=== PATIENT | female | born 1990 | race Caucasian/White ===

== ENCOUNTER 2018-12-16 10:11 | Emergency (ER) | payer BC, SELFPAY ==
[2018-12-16 10:12] VITALS: BP 101/77; PULSE 113; RESP 20; TEMP 36.6; O2SAT 97; BMI 34.0
[2018-12-16] MEDS: Lactated Ringers 1,000 ML 999 ML IV (11:02)
[2018-12-16] MEDS: proMETHazine 25 MG/ML Syringe 6.25 MG IV (11:10)
[2018-12-16 11:15] LABS: Absolute Lymphocyte Count 0.65 X10^3/ul (0.83-4.51); Absolute Neutrophil Count 5.2 X10^3/uL (2.0-7.7); Basophil# 0.01 X10^3/uL; Basophil% 0.2 % (0-1); Hematocrit 36.7 % (37-47); Hemoglobin 12.4 g/dl (12.0-15.0); Lymphocyte # 0.65 X10^3/ul (4.0); Lymphocyte % 10.7 % (19-41); Mean Corp Hgb Conc 33.8 g/gl (32-36); Mean Corpuscular Hgb 28.9 pg (27.0-32.0); Mean Corpuscular Volume 85.5 fL (81-99); Mean Platelet Vol. 11.1 fl (6.2-12.0); Monocyte# 0.25 X10^3/uL; Monocyte% 4.1 % (0-10); Neutrophil # 5.16 X10^3/uL (2.7-7.7); Neutrophil % 84.7 % (47-70); Platelet Count 222 K/mm3 (150-450); RBC Distribution Width CV 12.9 % (11.6-14.6); RBC Distribution Width SD 39.8 fl (35.1-43.9); Red Blood Count 4.29 M/mm3 (4.2-5.4); White Blood Count 6.1 K/mm3 (4.4-11.0)
[2018-12-16 11:16] LABS: POSITIVE COUNT NO; POSITIVE DIFFERENTIAL NO; POSITIVE MORPHOLOGY NO
[2018-12-16 11:31] LABS: ALB/GLOB Ratio 0.9 RATIO (0.9-2.4); AST(SGOT) 17 U/L (15-37); Alanine Aminotransfer ALT/SGPT 25 U/L (13-56); Albumin, Serum 3.3 g/dL (3.2-5.0); Alkaline Phosphatase 56 U/L (45-117); Anion Gap 9 (5-15); BUN 6 mg/dL (7-18); BUN/Creat Ratio 10.4 RATIO (10-20); Calcium,Total 8.4 mg/dL (8.5-10.1); Chloride 104 mmol/L (98-107); Creatinine, Serum 0.58 mg/dL (0.55-1.02); EST Glomerular Filtration Rate 132 mL/min (>60); Est Glom Filt Rate - Afr Amer 160 mL/min (>60); Estimated Creatinine Clearance 152.26 ml/min; Globulin 3.8 g/dL (2.2-4.2); Glucose 86 mg/dL (74-106); Potassium 3.4 mmol/L (3.5-5.1); Protein, Total 7.1 g/dL (6.4-8.2); Sodium Level 134 mmol/L (136-145)
[2018-12-16 13:05] LABS: Mucous, Urine 0 SEEN /hpf (<or=2+); Red Blood Cells-Urine 0 SEEN /hpf (0-5)
[2018-12-16 13:07] LABS: Color, Urine Yellow (Yellow); Glucose, Dipstick Normal (Normal); Leukocyte Esterase-Dipstick Negative /ul (Negative); Nitrite-Dipstick Negative (Negative); Occult Blood-Urine Negative /ul (Negative); Protein-Dipstick Negative (Negative); Urine Bilirubin Dipstick Negative (Negative); Urine Clarity Clear (Clear); Urine Urobilinogen Normal (Normal)
[2018-12-16 13:13] LABS: Ketone-Dipstick 150 mg/dl (Negative)
[2018-12-16 13:20] LABS: Bacteria 1+ /hpf (None Seen); Squamous Epithelial Cells - UA 0-5 SEEN /hpf (5-10); White Blood Cells 0-5 SEEN /hpf (0-5)
[2018-12-16 13:44] VITALS: RESP 16
--- NOTE | 2018-12-16 13:47 | ED.VISSUMM ---
- ER Visit Summary Date of Service: 12/16/18 Chief Complaint: Nausea vomiting History of Present Illness: The patient is a 28 F with nausea and vomiting that started yesterday at 6 AM. Patient also reports some mild back pain and chills. She is 15 weeks . This is her first and she follows with the [facility]. She has had normal ultrasounds. She denies bleeding or discharge. Physical Examination: Afebrile and vital signs unremarkable except for heart rate of 113 and respiratory rate of 20. Head and neck atraumatic. Mucous membranes moist. Heart regular. Lungs clear. Abdomen soft and nontender. Extremities nontender with no edema. Skin normal in color. Test Results: CBC normal. Sodium 134 and potassium 3.4. Urinalysis showed 1+ bacteria but no other signs of infection. Culture was sent. heart tones were 148. Emergency Department Course and Treatment: Patient treated with Phenergan and lactated Ringer's. Her workup was all fairly unremarkable. She had 1+ bacteria but no signs of infection. I sent a culture. I talked her about this and she will follow-up with her FLESHING MACHINE OPERATOR for the results. On reevaluation, her nausea has resolved. She has medication at home and will continue that medication. She will follow-up with her FLESHING MACHINE OPERATOR. Treatment Plan: As above Disposition: Discharge Impression: 1. Nausea and vomiting 2. This note was generated with Humation software. It may contain incorrect words, spelling, and punctuation that were not noted in review of the chart prior to signing ED Disposition - Plan for ED Patient: Referrals: Care Physician,No Primary [Primary Care Provider] -
--- NOTE | 2018-12-16 13:50 | ED.DCSUM_ITS ---
- ER Visit Summary Date of Service: 12/16/18 Chief Complaint: Nausea vomiting History of Present Illness: The patient is a 28 F with nausea and vomiting that started yesterday at 6 AM. Patient also reports some mild back pain and chills. She is 15 weeks . This is her first and she follows with the [facility]. She has had normal ultrasounds. She denies bleeding or discharge. Physical Examination: Afebrile and vital signs unremarkable except for heart rate of 113 and respiratory rate of 20. Head and neck atraumatic. Mucous membranes moist. Heart regular. Lungs clear. Abdomen soft and nontender. Extremities nontender with no edema. Skin normal in color. Test Results: CBC normal. Sodium 134 and potassium 3.4. Urinalysis showed 1+ bacteria but no other signs of infection. Culture was sent. heart tones were 148. Emergency Department Course and Treatment: Patient treated with Phenergan and lactated Ringer's. Her workup was all fairly unremarkable. She had 1+ bacteria but no signs of infection. I sent a culture. I talked her about this and she will follow-up with her COLORECTAL SURGEON for the results. On reevaluation, her nausea has resolved. She has medication at home and will continue that medication. She will follow-up with her COLORECTAL SURGEON. Treatment Plan: As above Disposition: Discharge Impression: 1. Nausea and vomiting 2. This note was generated with BIOeCONation software. It may contain incorrect words, spelling, and punctuation that were not noted in review of the chart p rior to signing ED Disposition - Plan for ED Patient: Referrals: Care Physician,No Primary [Primary Care Provider] -
--- NOTE | 2018-12-16 13:50 | ED.DEP ---
ED Disposition - Plan for ED Patient: Instructions: ED Nausea Vomiting Additional Instructions: follow up with your obgyn
[2018-12-16 13:55] VITALS: BP 120/74; PULSE 71; RESP 15; O2SAT 98
== END 2018-12-16 13:55 | disposition home or self-care (01) ==
LOC: ED 10:51
PROVIDERS: Emergency Provider Emergency Medicine
DX: O21.9 Vomiting of pregnancy, unspecified (principal); M54.9 Dorsalgia, unspecified; Z3A.15 15 weeks gestation of pregnancy
CPT/HCPCS: 80053; 81001; 85025; 87086; 87088; 96361; 96374; 99283; J7120; A4216

== ENCOUNTER 2019-06-16 09:36 | Inpatient (IN) | payer BC, SELFPAY ==
--- NOTE | 2019-06-14 13:53 | HP.PCM_ITS ---
History and Physical Date of Admission: 06/14/19 Pre-Op History and Physical ? HPI: The patient is a 29 year old female presenting for pre-operative visit. She is scheduled for?, for?elective c/s, LGA, unengaged head at term on?06/16/19. ??Procedure discussed along with risks, benefits and complications. ?Other alternatives discussed for management. Consent form signed??Yes.? PAST?MEDICAL?HISTORY PAST MEDICAL HISTORY Diagnosis Date ? Depression ? ? ? PAST?SURGICAL?HISTORY PAST SURGICAL HISTORY Procedure Laterality Date ? CYST EXCISION ? ? ? EXTRACTION ERUPTED TOOTH/EXR ? ? ? KNEE SURGERY HX Right ? ? ACL ? NOSE ? ? ? TONSILLECTOMY AND ADENOIDECTOMY HX ? ? ? TONSILLECTOMY HX ? CURRENT?MEDICATIONS Current Outpatient Medications Medication Sig Dispense Refill ? no122/iron/folic acid ( MULTI ORAL) Take by mouth. ? ? ? psyllium (NATURAL FIBER SUPPLEMENT) 3.4 gram packet Take 1 Packet by mouth once daily. ? ? ? lactobacillus combination no.4 (PROBIOTIC) 3 billion cell cap Take 1 capsule by mouth once daily. ? ? ? No current facility-administered medications for this visit.? ? ALLERGIES:?Patient has no known allergies. ? PERSONAL HISTORY:? SOCIAL?HISTORY Social History ??Socioeconomic History ?Marital status: Single ?Spouse name: Not on file ?Number of children: Not on file ?Years of education: Not on file ?Highest education level: Not on file ??Occupational History ?Not on file ??Social Needs ?Financial resource strain: Not on file ?Food insecurity: ?Worry: Not on file ?Inability: Not on file ?Transportation needs: ?Medical: Not on file ?Non-medical: Not on file ??Tobacco Use ?Smoking status: Never Smoker ?Smokeless tobacco: Never Used ??Substance and Sexual Activity ?Alcohol use: Yes ?Drug use: Not on file ?Sexual activity: Not on file ??Lifestyle ?Physical activity: ?Days per week: Not on file ?Minutes per session: Not on file ?Stress: Not on file ??Relationships ?Social connections: ?Talks on phone: Not on file ?Gets together: Not on file ?Attends yazidi service: Not on file ?Active member of club or organization: Not on file ?Attends meetings of clubs or organizations: Not on file ?Relationship status: Not on file ?Intimate partner violence: ?Fear of current or ex partner: Not on file ?Emotionally abused: Not on file ?Physically abused: Not on file ?Forced sexual activity: Not on file ??Other Topics ?Concerns: ?Not on file ??Social History Narrative ?Not on file ? FAMILY HISTORY:? FAMILY?HISTORY FAMILY HISTORY Problem Relation Age of Onset ? Hyperlipidemia Father ? ? Hypertension Father ? ? REVIEW OF SYMPTOMS: GENERAL: denies fevers or chills ENDOCRINOLOGY: has not been on steroids Cardiology : denies palpitations or chest pain Respiratory: denies SOB or cough Hematology: denies history of prolonged bleeding or easy bruising or VTE Allergy: Denies history of personal or family history of allergy to anesthesia ? ? PHYSICAL EXAMINATION: ? VITALS:?Blood pressure 118/82, weight 248 lb (112.5 kg), last menstrual period 08/27/2018. ? GENERAL:??The patient is well nourished, well hydrated in no acute distress. ?, The patient is oriented to time, place, and person. NECK:?Supple. No lynphadenopathy, normal thyroid, no thyromegaly. LUNGS:?Clear to auscultation bilaterally. no wheezes, rhonchi or rales HEART:?Regular rate and rhythm, Normal heart sounds and No murmurs or gallops ABD: soft, nontender, gravid ext- 1 + edema ? IMPRESSION:?40 6/7 weeks on 06/16/19,?estimated weight large for gestational age both clinically and by ultrasound, unfavorable cervix with high head at term, desires primary section ? PLAN:???The risks/benefits/alternatives and personal involved for the planned?c- section?were reviewed with the patient. Her questions were answered to her satisfaction and she desires to proceed. ?Consent was signed. ?I reviewed with her postop instructions and expectations. ? ? I have reviewed and updated past medical and surgical history, medications and allergies? Amy White M.D.
[2019-06-16] VITALS (22 sets, daily range): BP systolic 107–130; BP diastolic 54–77; PULSE 66–90; RESP 16–18; TEMP 36.5–37.1; O2SAT 97–100; BMI 36.4
[2019-06-16] MEDS: Lactated Ringers 1,000 ML 999 ML IV (10:20)
[2019-06-16 10:33] LABS: Absolute Lymphocyte Count 1.59 X10^3/uL (0.83-4.51); Absolute Neutrophil Count 9.4 X10^3/uL (2.0-7.7); Basophil# 0.02 X10^3/uL; Basophil% 0.2 % (0-1); Eosinophil# 0.16 X10^3/uL; Eosinophils% 1.3 % (0-5); Lymphocyte # 1.59 X10^3/ul (4.0); Lymphocyte % 13.1 % (19-41); Mean Corp Hgb Conc 32.3 g/dL (32-36); Mean Corpuscular Hgb 26.5 pg (27.0-32.0); Monocyte# 0.88 X10^3/uL; Monocyte% 7.2 % (0-10); NRBC Flagged by Analyzer 0 % (0-5); Neutrophil # 9.38 X10^3/uL (2.7-7.7); Neutrophil % 77.2 % (47-70); Platelet Count 189 K/mm3 (150-450); RBC Distribution Width CV 14.1 % (11.6-14.6); RBC Distribution Width SD 41.3 fl (35.1-43.9); Red Blood Count 3.78 M/mm3 (4.2-5.4); White Blood Count 12.2 K/mm3 (4.4-11.0)
[2019-06-16] MEDS: Lactated Ringers 1,000 ML 150 ML IV (11:15)
[2019-06-16] MEDS: Sodium Citrate/Citric Acid 30 ML UDC PO (12:23)
[2019-06-16] MEDS: Cefazolin 2 GM in 0.9% Normal Saline 100 ML IV (12:29)
[2019-06-16] MEDS: Ondansetron 4 MG/2 ML Vial IV (12:30)
--- NOTE | 2019-06-16 13:13 | PCM.OPRPT ---
Delivery Classification: Scheduled Final JENNIFER: 06/10/19 Final JENNIFER Source: US <20 weeks Gestational age: 40 Weeks and 6 Days Indications for : - - Affected LGA fetus, unengaged head at term, unfavorable cervix, higher section Description of Procedure: The patient was taken to the operating room. She was prepped and draped in the dorsal supine position with a leftward tilt. A Pfannenstiel skin incision was made approximately 2 cm above the symphysis pubis and carried through to underlying layer fascia with the scalpel. The fascia was incised incised in the midline and extended laterally with the Gomez scissors. The fascia was dissected off the rectus muscles with blunt and sharp dissection. The rectus muscles were in the midline and the peritoneum was entered bluntly. The peritoneal incision was stretched and the bladder blade was placed. The uterine incision was made in a low transverse fashion with the scalpel and extended superiorly and inferiorly with blunt dissection. The amniotic membranes were ruptured bluntly and clear amniotic fluid returned. The 's head was brought to the incision in the flexed position and delivered without difficulty. The remainder of the infant was delivered with gentle traction and fundal pressure in the standard fashion. The mouth and nares were bulb suctioned. The cord was clamped and cut as the infant was stimulated. Cord clamping was delayed. The infant was handed off to the waiting nursing staff. The placenta was delivered with fundal massage and gentle traction in the standard fashion. The uterus was exteriorized and cleared of all clots and debris. The cervix was dilated with a ring forcep. The uterine incision was closed with #1 Vicryl in a running locked fashion. A second layer of the same suture was used in an imbricating fashion. The incision was examined and was found to be hemostatic. The uterus was placed back into the peritoneal cavity and hemostasis was again confirmed. The rectus muscles were examined and any bleeding was Bovie cauterized. The parietal peritoneum and rectus muscles were closed en bloc with an 0 Vicryl running suture. The surgical teams outer gloves were then changed. The rectus fascia was examined and any bleeding was Bovie cauterized and the rectus fascia was closed with 0 PDS suture in a running standard fashion. The subcutaneous tissue was examining and any bleeding was Bovie cauterized. The subcutaneous tissue was reapproximated with 3-0 Vicryl suture. The skin was closed in a subcuticular fashion by the MANAGER ACADEMIC with me present in the labor and delivery suite. I performed the remainder of the procedure with assistance. All sponge, lap, and needle counts were correct. The patient was taken to her room for recovery in a stable condition. Certified Physician Assistant: Louisa FREEMAN Anesthesia-Spinal Amniotic Membrane Rupture Type: Artificial Amniotic Fluid Description: Clear Placenta Disposition: [facility] Specimen(s) sent to pathology: None Drain: Armando to straight drain Fluids Replaced: LR Cord Entanglement: None Cord Vessel Description: 3 Vessels Esitmated Blood Loss (ml): 900 Infant Gender: Male - Dewey (1 minute): 9 (5 minute): 9 Delayed cord clamping: Yes Pre-op Antibiotic Given: Ancef 2 grams IV x1 Complications: None - Admit VTE Documentation VTE Present on Admission: No VTE Mechan Device Prophylaxis: SCD's VTE Pharm Prophylaxis ordered?: Yes
[2019-06-16] MEDS: Oxytocin 30 units/NS 500 ml 30 UNITS/500 ML IV.SOLN 167 UNITS IV (13:53)
[2019-06-16] MEDS: Lactated Ringers 1,000 ML 100 ML IV (16:59)
[2019-06-16] MEDS: 0.9% Saline Lock 10 ML Syringe 5 ML IV (19:19)
[2019-06-16] MEDS: Ketorolac 30 MG/ML Syringe IV (19:19)
[2019-06-16] MEDS: Senna/Docusate Sodium 1 Tablet PO (23:23)
[2019-06-17] VITALS (9 sets, daily range): BP systolic 110–129; BP diastolic 63–81; PULSE 77–88; RESP 16–18; TEMP 36.5–36.9; O2SAT 96–100
[2019-06-17] MEDS: Ketorolac 30 MG/ML Syringe IV ×4 (00:49→17:54)
[2019-06-17] MEDS: Lactated Ringers 1,000 ML 100 ML IV (02:57)
[2019-06-17 04:41] LABS: Hematocrit 28.5 % (37-47); Hemoglobin 9.4 g/dL (12.0-15.0); Mean Corpuscular Hgb 27.2 pg (27.0-32.0); Mean Corpuscular Volume 82.6 fL (81-99); Mean Platelet Vol. 12.8 fl (6.2-12.0); Platelet Count 179 K/mm3 (150-450); RBC Distribution Width SD 41.8 fl (35.1-43.9); Red Blood Count 3.45 M/mm3 (4.2-5.4); White Blood Count 15.7 K/mm3 (4.4-11.0)
[2019-06-17 04:43] LABS: Scan Indicated on CBC? Y/N NO
[2019-06-17] MEDS: Enoxaparin 40 MG/0.4 ML Syringe SC (06:07)
[2019-06-17] MEDS: 0.9% Saline Lock 10 ML Syringe 5 ML IV ×3 (06:25→17:54)
--- NOTE | 2019-06-17 08:31 | PCM.PN.OB ---
Subjective: Pain well controlled, average lochia. No nausea vomiting overnight. Tolerating regular diet. - Physical Exam General: Alert, Cooperative, No apparent distress Abdomen: Soft, Distended - Mildly, softly, Tender - Appropriately Extremities: Edema - 2+ Vital Signs Temp Pulse Resp BP Pulse Ox 97.9 F 87 18 110/63 96 06/17/19 04:00 06/17/19 06:20 06/17/19 06:20 06/17/19 04:00 06/17/19 06:20 Oxygen Delivery Method Room Air Weight: 111.9 kg Body Mass Index (BMI) 36.4 Intake and Output for Last 24 Hours 06/15/19 06/16/19 06/17/19 23:59 23:59 23:59 Intake Total 3538.25 / 4038.25 1178.34 / 1178.34 Output Total 600 / 1350 750 / 750 Balance 2938.25 / 2688.25 428.34 / 428.34 Laboratory Tests Past 24 Hrs 06/16/19 06/16/19 06/16/19 10:15 10:15 15:34 WBC 12.2 H RBC 3.78 L Hgb 10.0 L Hct 31.0 L MCV 82.0 MCH 26.5 L MCHC 32.3 RDW Std Deviation 41.3 RDW Coeff of Ray 14.1 Plt Count 189 MPV 13.0 H Immature Gran % (Auto) 1.000 H Neut % (Auto) 77.2 H Lymph % (Auto) 13.1 L Newberry % (Auto) 7.2 Eos % (Auto) 1.3 Baso % (Auto) 0.2 Absolute Neuts (auto) 9.4 H Absolute Lymphs (auto) 1.59 Nucleated RBC % 0 Blood Type O NEGATIVE Antibody Screen NEGATIVE Screen NEGATIVE Baby's Blood Type O POSITIVE Baby's CONNIE NEGATIVE 06/17/19 04:25 WBC 15.7 H RBC 3.45 L Hgb 9.4 L Hct 28.5 L MCV 82.6 MCH 27.2 MCHC 33.0 RDW Std Deviation 41.8 RDW Coeff of Ray 14.0 Plt Count 179 MPV 12.8 H Immature Gran % (Auto) Neut % (Auto) Lymph % (Auto) Newberry % (Auto) Eos % (Auto) Baso % (Auto) Absolute Neuts (auto) Absolute Lymphs (auto) Nucleated RBC % Blood Type Antibody Screen Screen Baby's Blood Type Baby's CONNIE Medical Necessity - Tobacco Use Smoking Status: Never smoker Assessment/Plan day #1 status post primary section. Patient and are doing well. Routine care. Patient had chronic antepartum anemia. Minimal decrease in hemoglobin overnight, appropriate for blood loss during surgery. Routine care.
[2019-06-17] MEDS: Senna/Docusate Sodium 1 Tablet PO ×2 (10:07→21:26)
[2019-06-17] MEDS: oxyCODONE 5 MG Tablet PO ×2 (13:30→19:07)
[2019-06-18] MEDS: Ketorolac 30 MG/ML Syringe IV (00:26)
[2019-06-18] MEDS: 0.9% Saline Lock 10 ML Syringe 5 ML IV (00:26)
[2019-06-18 02:30] VITALS: BP 119/76; PULSE 84; RESP 18; TEMP 36.3; O2SAT 96
[2019-06-18] MEDS: Ibuprofen 600 MG Tablet PO (06:44)
[2019-06-18] MEDS: Enoxaparin 40 MG/0.4 ML Syringe SC (06:44)
[2019-06-18 08:40] VITALS: BP 123/72; PULSE 82; RESP 16; TEMP 36.7
--- NOTE | 2019-06-18 09:01 | PCM.PN.OB ---
Subjective: Pain well controlled, average lochia. Positive flatus but no bowel movement. Tolerating regular diet. Ambulating without lightheadedness. - Physical Exam General: Alert, Cooperative, No apparent distress Abdomen: Soft, Distended - Mildly, softly, Tender - Appropriately Extremities: Edema - 1+ Skin: Incision - Bandage is clean dry and intact Vital Signs Temp Pulse Resp BP Pulse Ox 97.3 F L 84 18 119/76 96 06/18/19 02:30 06/18/19 02:30 06/18/19 02:30 06/18/19 02:30 06/18/19 02:30 Oxygen Delivery Method Room Air Weight: 111.9 kg Body Mass Index (BMI) 36.4 Intake and Output for Last 24 Hours 06/16/19 06/17/19 06/18/19 23:59 23:59 23:59 Intake Total 3538.25 / 4038.25 1178.34 / 1178.34 Output Total 600 / 1350 2049 / 2049 Balance 2938.25 / 2688.25 -871.66 / -871.66 Medical Necessity - Tobacco Use Smoking Status: Never smoker Assessment/Plan Postoperative day #2 status post primary section. Patient is doing well. Discharge home with routine instructions and follow-up.
--- NOTE | 2019-06-18 09:04 | DCINST_ITS ---
Discharge Diet: No Restrictions Discharge Activity: Return to Normal Activity, May Not Drive - for 2 weeks, May not drive while taking narcotic pain medications., May Shower, May Take a Tub Bath - in 7 days. May resume sexual activity in: 4-6 weeks Lifting Restrictions: 20 pounds Additional Activity Instructions:: Nothing in the vagina for 4-6 weeks. You may return to work/school in 6 weeks. Call your doctor if your incision/area has: Continuous Slow Oozing, Sudden Increased Bleeding, Increased Pain/ Swelling, Increased Redness, Foul Smelling Discharge Call your doctor if you observe: Fever of 101 or Higher, Using more than one pad per hour - for 2 hours Suture Line Care: Avoid Pulling/Pushing, Avoid Pinching/Bending Cleanse incision/area with: Keep Dressing Clean & Dry Additional Instructions: If you experience any of the following, contact your healthcare provider. * Bleeding that soaks a pad every hour for 2 hours * Fever 100.4 or higher * Unrelieved incision or abdominal pain * Swelling, redness, discharge or bleeding from your incision or episiotomy site * Your incision begins to separate * Problems urinating (including inability to urinate or burning while urinating). * Visual changes * Severe headache * Flu-like symptoms * Pain or redness in one of both of your breasts * Pain, warmth, tenderness or swelling in your legs, especially the calf area * Frequent nausea and vomiting * Symptoms of depression or anxiety If you experience any of the following, call 911 or go to the nearest Emergency Room. * Chest pain * Problems breathing * Seizure activity * Partial or complete paralysis of a body part, slurred speech, weakness or drooping of the face, or a sudden inability to walk or hold your balance * * * * * Take 1000 mg of tylenol every 6 hrs as needed for pain, alternate with the ibuprofen. Use the oxycodone for breakthrough pain Allergies/Adverse Reactions: Allergies No Known Allergies Allergy (Verified 06/16/19 10:17) Medications to take at Discharge Vits [Prenatabs FA ] 1 tab PO DAILY 06/16/19 Ibuprofen [Motrin] 600 mg PO Q6H PRN #60 tab 06/18/19 Oxycodone [Oxyir] 5 mg PO Q6H PRN PRN 5 Days #15 tablet 06/18/19 The following prescriptions were given: Ibuprofen [Motrin] 600 mg PO Q6H PRN #60 tab PRN Reason: Pain Transmission Status: Pending to [id number] Oxycodone [Oxyir] 5 mg PO Q6H PRN PRN 5 Days #15 tablet PRN Reason: Severe Pain (6-07/28) Transmission Status: Received by [id number] Follow-Up: Call to make an appointment with your doctor for an incision check in 1-2 weeks. You will also need a 6 week post- follow up appointment. Test results from this visit will be discussed in further detail at your follow- up appointment, if applicable. Please Follow Up With: Amy White MD - Call to make an appointment for an incision check in 1-2 [phone] When: You will need a post check in 6 weeks. Primary Care Physician: Care Physician,No Primary [Primary Care Provider] -
--- NOTE | 2019-06-18 09:09 | PCM.DC.SUM ---
Discharge Date and Diagnosis Date of Admission: 06/14/19 Date of Discharge: 06/18/19 Hospital Course and Treatment Operations: - - Primary low transverse section via Pfannenstiel skin incision. Double layer closure of the uterus with #1 Vicryl suture Procedures: None Summary of Care Provided: The patient is a 29-year-old primigravida female presented for primary section due to having unengaged head at term, unfavorable cervix, estimated large for gestational age fetus. The section was performed without difficulty. Postoperatively, the patient had routine course. By postoperative day #2 she was ambulating, urinating tolerating regular diet without occult he and desired discharge home. She was discharged home with routine instructions and prescriptions. [] - Physical Exam Vital Signs Temp Pulse Resp BP Pulse Ox 97.3 F L 84 18 119/76 96 06/18/19 02:30 06/18/19 02:30 06/18/19 02:30 06/18/19 02:30 06/18/19 02:30 Oxygen Delivery Method Room Air Weight: 111.9 kg Body Mass Index (BMI) 36.4 Intake and Output for Last 24 Hours 06/16/19 06/17/19 06/18/19 23:59 23:59 23:59 Intake Total 3538.25 / 4038.25 1178.34 / 1178.34 Output Total 600 / 1350 2049 / 2049 Balance 2938.25 / 2688.25 -871.66 / -871.66 Discharge Diet: No Restrictions Discharge Activity: Return to Normal Activity, May Not Drive - for 2 weeks, May not drive while taking narcotic pain medications., May Shower, May Take a Tub Bath - in 7 days. May resume sexual activity in: 4-6 weeks Additional Activity Instructions:: Nothing in the vagina for 4-6 weeks. You may return to work/school in 6 weeks. Call your doctor if your incision/area has: Continuous Slow Oozing, Sudden Increased Bleeding, Increased Pain/ Swelling, Increased Redness, Foul Smelling Discharge Call your doctor if you observe: Fever of 101 or Higher, Using more than one pad per hour - for 2 hours Suture Line Care: Avoid Pulling/Pushing, Avoid Pinching/Bending Cleanse incision/area with: Keep Dressing Clean & Dry Home Medications: Medications to take at Discharge Vits [Prenatabs FA ] 1 tab PO DAILY 06/16/19 Ibuprofen [Motrin] 600 mg PO Q6H PRN #60 tab 06/18/19 Oxycodone [Oxyir] 5 mg PO Q6H PRN PRN 5 Days #15 tab 06/18/19 Following Prescrptions Were Given to Patient: Ibuprofen [Motrin] 600 mg PO Q6H PRN #60 tab PRN Reason: Pain Transmission Status: Received by [id number] Oxycodone [Oxyir] 5 mg PO Q6H PRN PRN 5 Days #15 tab PRN Reason: Severe Pain (6-07/28) Transmission Status: Received by [id number] Primary Care Physician: Care Physician,No Primary [Primary Care Provider] - Please Follow Up With: Amy White MD - Call to make an appointment for an incision check in 1-2 [phone] When: You will need a post check in 6 weeks. Medical Necessity - Tobacco Use Smoking Status: Never smoker Meaningful Use Info Meaningful Use Diagnoses (Choose all that apply): None applicable
[2019-06-18] MEDS: oxyCODONE 5 MG Tablet PO (10:32)
[2019-06-18] MEDS: Senna/Docusate Sodium 1 Tablet PO (11:32)
== END 2019-06-18 11:45 | disposition home or self-care (01) | DRG 788 ==
PROVIDERS: Admitting Provider Obstetrics & Gynecology; Referring Provider Obstetrics & Gynecology; Visit Provider Obstetrics & Gynecology
PROC: 10D00Z1 Extraction of Products of Conception, Low, Open Approach (ICD-10-PCS; CPT 59514; principal; 2019-06-16 12:00)
DX: O36.60X0 Maternal care for excessive fetal growth, unspecified trimester, not applicable or unspecified (principal); Z3A.40 40 weeks gestation of pregnancy; Z37.0 Single live birth; O32.4XX0 Maternal care for high head at term, not applicable or unspecified
CPT/HCPCS: 85025; 85027; 85461; 86850; 86900; 86901; 90384; 99218; J7120; A4216; G0378; J2405; J2790

== ENCOUNTER 2022-05-30 05:04 | Inpatient (IN) | payer BC, SELFPAY ==
--- NOTE | 2022-05-22 11:37 | PCM.HP.BLA ---
History and Physical Date of Admission: 05/30/22 HPI: The patient is a 31 year old female presenting for pre-operative visit. She is scheduled for repeat c/s, for 39 weeks, previous c/s on 05/30/22. Procedure discussed along with risks, benefits and complications. Other alternatives discussed for management. Consent form signed? Yes. ? ? PAST MEDICAL HISTORY PAST MEDICAL HISTORY Diagnosis Date ? Depression ? ? Diet controlled gestational diabetes mellitus (GDM) in third trimester 03/19/2022 ? fracture 2002 ? right arm- basketball accident ? ? PAST SURGICAL HISTORY PAST SURGICAL HISTORY Procedure Laterality Date ? DELIVERY ONLY ? 06/16/2019 ? C/S low transverse ? CYST EXCISION ? ? ? EXTRACTION, ERUPTED TOOTH OR EXPOSED ROOT (ELEVATION AND/OR FORCEPS REMOVAL) ? ? ? KNEE SURGERY HX Right ? ? ACL ? MYRINGOTOMY ? ? ? x2 ? NOSE ? ? ? TONSILLECTOMY AND ADENOIDECTOMY HX ? ? ? TONSILLECTOMY HX ? CURRENT MEDICATIONS Current Outpatient Medications Medication Sig Dispense Refill ? insulin NPH (HumuLIN N,NovoLIN N) pen Inject 10 Units subcutaneously daily at bedtime. 3 mL 2 ? ONETOUCH VERIO FLEX METER 1 EACH DIRECTED FOR 1 DAY. ? ? ? ONETOUCH DELICA PLUS LANCET 30 gauge four times daily. ? ? ? Insulin Syringe-Needle U-100 0.3 mL 31 gauge x 5/16 1 Each daily at bedtime. 90 Each 1 ? Insulin [place], Disposable, (MICRODOT INSULIN PEN NEEDLE) 31 gauge x 1/4 ndle 1 Units once daily. 30 Each 2 ? blood sugar diagnostic test strip 1 Strip four times daily. Use as instructed 120 Strip 9 ? Lancets lancets 1 Each four times daily. Use as instructed 120 Each 9 ? multivitamin (CLASSIC ) 28 mg iron- 800 mcg tab(s) Take 1 tablet by mouth once daily. ? ? ? EBLJ-CVMZ-ESW-C-DXP-VNF-MUSSEL ORAL Take by mouth. ? ? ? OTC NUTRITIONAL SUPPLEMENT Greens supplement ? ? ? COLLAGEN MISC ? psyllium (NATURAL FIBER SUPPLEMENT) 3.4 gram packet Take 1 Packet by mouth once daily. ? ? ? lactobacillus combination no.4 (PROBIOTIC) 3 billion cell cap Take 1 capsule by mouth once daily. ? ? ? No current facility-administered medications for this visit. ? ? ALLERGIES: Patient has no known allergies. ? PERSONAL HISTORY: SOCIAL HISTORY Social History ? Tobacco Use ? Smoking status: Never Smoker ? Smokeless tobacco: Never Used Vaping Use ? Vaping Use: Never used Substance Use Topics ? Alcohol use: Not Currently ? Drug use: Not Currently ? ? Comment: high school ? FAMILY HISTORY: FAMILY HISTORY FAMILY HISTORY Problem Relation Age of Onset ? No Known Problems Mother ? ? Hyperlipidemia Father ? ? Hypertension Father ? ? Bipolar disorder Maternal Grandmother ? ? Schizophrenia Maternal Grandmother ? ? No Known Problems Maternal Grandfather ? ? No Known Problems Paternal Grandmother ? ? Colon Cancer Paternal Grandfather ? ? No Known Problems Son ? ? ? REVIEW OF SYMPTOMS: GENERAL: denies fevers or chills ENDOCRINOLOGY: has not been on steroids Cardiology : denies palpitations or chest pain Respiratory: denies SOB or cough Hematology: denies history of prolonged bleeding or easy bruising or VTE Allergy: Denies history of personal or family history of allergy to anesthesia ? PHYSICAL EXAMINATION: ? VITALS: Last menstrual period 08/19/2021, currently . ? GENERAL: The patient is well nourished, well hydrated in no acute distress. , The patient is oriented to time, place, and person. NECK: Supple. No lynphadenopathy, normal thyroid, no thyromegaly. LUNGS: Clear to auscultation bilaterally. no wheezes, rhonchi or rales HEART: Regular rate and rhythm, Normal heart sounds and No murmurs or gallops abd- Soft, nontender, gravid ? IMPRESSION: w Estimated Date of Delivery: 06/04/22 ? ? PLAN: The risks/benefits/alternatives and personal involved for the planned repeat c/secion were reviewed with the patient. Her questions were answered to her satisfaction and she desires to proceed. Consent was signed. I reviewed with her postop instructions and expectations. ? ? I have reviewed and updated past medical and surgical history, medications and allergies Assessment & Plan Assessment/Plan (1) Previous delivery affecting : (2) 39 weeks gestation of :
[2022-05-30] VITALS (15 sets, daily range): BP systolic 90–132; BP diastolic 48–77; PULSE 58–102; RESP 14–18; TEMP 36.2–37.1; O2SAT 93–99; BMI 35.2
[2022-05-30] MEDS: Lactated Ringers 1,000 ML 999 ML IV (05:25)
[2022-05-30 05:32] LABS: Absolute Lymphocyte Count 1.98 X10^3/uL (0.83-4.51); Absolute Neutrophil Count 5.5 X10^3/uL (2.0-7.7); Basophil# 0.02 X10^3/uL; Basophil% 0.2 % (0-1); Eosinophil# 0.11 X10^3/uL; Eosinophils% 1.3 % (0-5); Hematocrit 33.2 % (37-47); Hemoglobin 10.2 g/dL (12.0-15.0); Lymphocyte # 1.98 X10^3/ul (0.83-4.51); Mean Corp Hgb Conc 30.7 g/dL (32-36); Mean Corpuscular Hgb 26.3 pg (27.0-32.0); Mean Corpuscular Volume 85.6 fL (81-99); Mean Platelet Vol. 13.6 fl (6.2-12.0); Monocyte# 0.62 X10^3/uL; Monocyte% 7.5 % (0-10); NRBC Flagged by Analyzer 0 % (0-5); Neutrophil # 5.46 X10^3/uL (2.7-7.7); Neutrophil % 66.3 % (47-70); Platelet Count 158 K/mm3 (150-450); RBC Distribution Width CV 15.1 % (11.6-14.6); RBC Distribution Width SD 46.2 fl (35.1-43.9); Red Blood Count 3.88 M/mm3 (4.2-5.4); White Blood Count 8.3 K/mm3 (4.4-11.0)
[2022-05-30] MEDS: Acetaminophen 500 MG Tablet 1000 MG PO ×3 (05:40→17:57)
[2022-05-30 06:01] LABS: Bedside Glucose 112 mg/dL (74-106)
[2022-05-30] MEDS: Lactated Ringers 1,000 ML 150 ML IV (06:37)
[2022-05-30] MEDS: Sodium Citrate/Citric Acid 30 ML UDC PO (07:13)
[2022-05-30] MEDS: Cefazolin 2 GM in 0.9% Normal Saline 100 ML IV (07:36)
--- NOTE | 2022-05-30 08:23 | EX.PCM.OBRPT ---
Assessment & Plan (1) Previous delivery affecting : (2) 39 weeks gestation of : Maternal Data Information Final JENNIFER: 06/04/22 Gestational age: 39 2/7 Details Operative Information Date of Procedure: 05/30/22 Pre-Operative Diagnosis: previous c/s, 39 weeks, GDMA2 Post-Operative Diagnosis: same Indications for : Repeat Elective Classification: Scheduled Procedure Type: low transverse designer writer #1: StaRoslyn interiano designer writer #2: ROBBINS, M2 Type of Anesthesia: Spinal Anesthesiologist: Amanuel Pereira Antibiotic Given: Ancef 2 grams IV x1 Drain: Armando to straight drain Estimated Blood Loss: 900 Fluids Replaced: 900 Procedure Start Time: 07:47 Procedure Stop Time: 08:29 Time of Delivery: 07:50 Findings Description of Procedure: The patient was taken to the operating room. She was prepped and draped in the dorsal supine position with a leftward tilt. A Pfannenstiel skin incision was made approximately 2 cm above the symphysis pubis and carried through to underlying layer fascia with the scalpel. The fascia was incised incised in the midline and extended laterally with the Gomez scissors. The rectus muscles were in the midline and the peritoneum was entered bluntly. The peritoneal incision was stretched and the bladder blade was placed. The uterine incision was made in a low transverse fashion with the scalpel and extended superiorly and inferiorly with blunt dissection. The amniotic membranes were ruptured bluntly and clear amniotic fluid returned. The infant's head was brought to the incision in the flexed position and delivered without difficulty. The remainder of the infant was delivered with gentle traction and fundal pressure in the standard fashion. The mouth and nares were bulb suctioned. The cord was clamped and cut as the infant was stimulated. Cord clamping was delayed. The infant was handed off to the waiting nursing staff. The placenta was delivered with fundal massage and gentle traction in the standard fashion. The uterus was exteriorized and cleared of all clots and debris. The cervix was dilated with a ring forcep. The uterine incision was closed with #1 Vicryl in a running locked fashion. A second layer of the same suture was used in an imbricating fashion. 2 [id number] sutures were needed through some sinuses to obtain hemostasis. The incision was examined and was found to be hemostatic. The uterus was placed back into the peritoneal cavity and hemostasis was again confirmed. The rectus muscles were examined and any bleeding was Bovie cauterized. The parietal peritoneum and rectus muscles were closed en bloc with an 0 Vicryl running suture. The surgical teams outer gloves were then changed. The rectus fascia was examined and any bleeding was Bovie cauterized and the rectus fascia was closed with 0 PDS suture in a running standard fashion. The subcutaneous tissue was examining and any bleeding was Bovie cauterized. The subcutaneous tissue was reapproximated with 3-0 Vicryl suture. The skin was closed in a subcuticular fashion by the SYSTEM CONFIGURATION SPECIALIST with me present in the labor and delivery suite. I performed the remainder of the procedure with assistance. All sponge, lap, and needle counts were correct. The patient was taken to her room for recovery in a stable condition. Presentation: Positive for Vertex Amniotic Membrane Rupture Type: Artificial Amniotic Fluid Description: Clear Placental Delivery Description: Expressed Placenta Disposition: [facility] Specimen(s) Sent to Pathology: none Cord Vessel Description: 3 Vessels Cord Entanglement: Around neck x 2, loose Nuchal Cord Compression: Without compression Infant A Gender: Female (Shannon, 8lb 13 oz) (1 minute): 8 (5 minute): 10 Delayed Cord Clamping: Yes Complications Complications: none Admit VTE Documentation VTE Present on Admission: No VTE Mechan Device Prophylaxis: SCD's VTE Pharm Prophylaxis Ordered: Yes
[2022-05-30] MEDS: Oxytocin 30 units/NS 500 ml 30 UNITS/500 ML IV.SOLN 167 UNITS IV (08:50)
[2022-05-30] MEDS: Ketorolac 30 MG/ML Syringe IV ×3 (09:32→22:56)
[2022-05-30 09:51] LABS: Bedside Glucose 90 mg/dL (74-106)
[2022-05-30] MEDS: Lactated Ringers 1,000 ML 100 ML IV (12:00)
--- NOTE | 2022-05-30 12:33 | NURSING ---
This RN took over pt care and received report from Clarisa Parnell at 1145 on 05/30.
[2022-05-30] MEDS: 0.9% Saline Lock 10 ML Syringe IV (16:38)
[2022-05-30] MEDS: Enoxaparin 40 MG/0.4 ML Syringe SC (20:52)
[2022-05-31] MEDS: Acetaminophen 500 MG Tablet 1000 MG PO ×2 (00:01→05:57)
[2022-05-31 00:03] VITALS: BP 99/57; PULSE 67; RESP 14; TEMP 36.3; O2SAT 96
[2022-05-31 04:25] VITALS: BP 105/62; PULSE 72; RESP 14; TEMP 36.3; O2SAT 95
[2022-05-31] MEDS: Ketorolac 30 MG/ML Syringe IV (04:31)
[2022-05-31 06:21] LABS: Hematocrit 30.8 % (37-47); Hemoglobin 9.7 g/dL (12.0-15.0); Mean Corp Hgb Conc 31.5 g/dL (32-36); Mean Corpuscular Hgb 26.6 pg (27.0-32.0); Mean Corpuscular Volume 84.6 fL (81-99); Mean Platelet Vol. 13.3 fl (6.2-12.0); Platelet Count 142 K/mm3 (150-450); RBC Distribution Width CV 14.7 % (11.6-14.6); RBC Distribution Width SD 45.3 fl (35.1-43.9); Red Blood Count 3.64 M/mm3 (4.2-5.4); White Blood Count 11.1 K/mm3 (4.4-11.0)
[2022-05-31 06:25] LABS: Bedside Glucose 117 mg/dL (74-106)
[2022-05-31 09:30] VITALS: BP 108/69; PULSE 71; RESP 16; TEMP 36.5; O2SAT 96
[2022-05-31] MEDS: Ibuprofen 600 MG Tablet PO (10:25)
--- NOTE | 2022-05-31 11:31 | DCINST_ITS ---
Discharge Instructions Diet Discharge Diet: No restrictions Activity Discharge Activity: May Not Drive (until you feel strong enough to slam on a car break or turn a steering wheel sharply) and May Shower May resume sexual activity in: 6 weeks Ice area for (Minutes): 15 Weight Bearing Status: Weight bearing as tolerated Lifting Restrictions: nothing heavier than baby Dressing / Incision Call your doctor if your incision/area has: Continuous Slow Oozing, Sudden Increased Bleeding, Increased Pain/ Swelling, Increased Redness, Foul Smelling Discharge and Swelling at the incision site Call your doctor if you observe: Fever of 101 or Higher, Coldness, Increased Pain, Numbness or Tingling, Change in Color, Inability to urinate, Inability to have a bowel movement, Using more than 1 pad per hour, Shortness of breath, Dizziness, Fainting spells, Swelling in the ankles, Chest pain, Increased palpitations (irregular heartbeat), Calf discomfort and Uncontrolled pain Suture Line Care: Avoid Pulling/Pushing and Avoid Pinching/Bending Remove Dressing in: 4 days (Easiest to remove in the shower. Ok to remove sooner if it is falling off and/or saturated with water) Cleanse incision/area with: Soap & Water Follow Up Care Please Follow Up With: Amy White MD When: 1 week for an incision check 6 weeks for a visit Test Results: Test results from this visit will be discussed in further detail at your follow- up appointment, if applicable. Discharge Plan Admission Admit Date/Time: 05/30/22 05:04 Primary Reason for Your Visit: delivery Attending Provider: Amy White Primary Care Provider: Care Physician,Lo Primary Instructions Patient Instructions: After a Discharge Orders/Prescriptions Prescriptions: New oxycodone-acetaminophen [Endocet] 5-325 mg tablet 1 tab PO Q6H PRN (Reason: pain) 7 Days Qty: 10 0RF ibuprofen 600 mg tablet 600 mg PO Q6H PRN (Reason: pain) Qty: 30 0RF docusate sodium [Colace] 100 mg capsule 100 mg PO BID Qty: 30 0RF Discontinued vit,[id number] 1 TABLET tablet 1 tab PO DAILY ibuprofen 600 MG tablet 600 mg PO Q6H PRN (Reason: Pain) Qty: 60 1RF Referrals / Follow Up: Care Physician,No Primary [Primary Care Provider] - Disposition Disposition (needs filled in before D/C Order can be placed): Home, Self Care
--- NOTE | 2022-05-31 11:33 | PCM.PN.OB ---
Subjective Subjective Doing well. Pain is well controlled. She is ambulating and voiding without difficulty. She is tolerating regular diet without nausea or vomiting. She denies chest pain, shortness of breath, leg pain, lightheadedness, dizziness. Lochia is normal. She desires to go home today. Objective Data Objective Data Vital Signs: Vital Signs Temp Pulse Resp BP Pulse Ox O2 Del Method 97.4 F L 72 14 105/62 95 Room Air 05/31/22 04:25 05/31/22 04:25 05/31/22 04:25 05/31/22 04:25 05/31/22 04:25 05/31/22 04:25 Oxygen Delivery Method Room Air Weight: 238 lb 6.4 oz Body Mass Index (BMI) 35.2 Intake & Output: Intake and Output for Last 24 Hours 05/29/22 05/30/22 05/31/22 23:59 23:59 23:59 Intake Total 2467.5 / 2467.5 Output Total 1700 / 1700 1000 / 1000 Balance 767.5 / 767.5 -1000 / -1000 Lab / Micro Data Result Diagrams: 05/31/22 06:07 Labs: Laboratory Results - last 24 hr 05/31/22 05:57: POC Glucose 117 H 05/31/22 06:07: WBC 11.1 H, RBC 3.64 L, Hgb 9.7 L, Hct 30.8 L, MCV 84.6, MCH 26.6 L, MCHC 31.5 L, RDW Std Deviation 45.3 H, RDW Coeff of Ray 14.7 H, Plt Count 142 L, MPV 13.3 H Physical Exam Const alert and no apparent distress General Appearance: comfortable HEENT normocephalic Resp normal respiratory effort GI GI Narrative: [place] laying across mother's abdomen sleeping Extremity normal to inspection and no calf tenderness Assessment & Plan (1) S/P section: PLAN: She is postop day 1 from a repeat section. She is doing well and desires to go home today. Meeting all milestones to go home. Reviewed discharge instructions. To follow-up in the office this upcoming week.
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
[2022-05-31 13:25] VITALS: BP 118/87; PULSE 78; RESP 18; TEMP 36.7; O2SAT 98
== END 2022-05-31 14:10 | disposition home or self-care (01) | DRG 788 ==
PROVIDERS: Admitting Provider Obstetrics & Gynecology; Visit Provider Obstetrics & Gynecology
PROC: 10D00Z1 Extraction of Products of Conception, Low, Open Approach (ICD-10-PCS; CPT 59514; principal; 2022-05-30 07:15)
DX: O34.219 Maternal care for unspecified type scar from previous cesarean delivery (principal); O24.424 Gestational diabetes mellitus in childbirth, insulin controlled; F32.A Depression, unspecified; Z37.0 Single live birth; Z3A.39 39 weeks gestation of pregnancy; O99.344 Other mental disorders complicating childbirth; O69.81X0 Labor and delivery complicated by cord around neck, without compression, not applicable or unspecified
CPT/HCPCS: 59025; 59050; 82962; 85025; 85027; 86850; 86900; 86901; 99218; 99251; J7120; A4216; G0378; G0463; J2405